=== PATIENT | male | born 1955 | race Caucasian/White ===

== ENCOUNTER 2017-09-13 16:39 | Emergency (ER) | payer MEDICAID ==
[~2017-09-13] VITALS: Ht 172.7 cm; Wt 72.6 kg
[2017-09-13 16:42] VITALS: BP 135/86
[2017-09-13] MEDS ORDERED: KETOROLAC TROMETHAMINE INJ 60 MG/2 ML VIAL IM ONE (17:00)
[2017-09-13] MEDS ORDERED: KETOROLAC TROMETHAMINE INJ 30 MG/ML VIAL ONE (17:04)
== END 2017-09-13 17:31 | disposition home or self-care (01) ==
LOC: ER 16:40
DX: M54.41 Lumbago with sciatica, right side (principal); E11.9 Type 2 diabetes mellitus without complications; F17.200 Nicotine dependence, unspecified, uncomplicated; I10 Essential (primary) hypertension; Z88.8 Allergy status to other drugs, medicaments and biological substances
CPT/HCPCS: 96372; 99283; 99406; A4606; J1885; Z7610

== ENCOUNTER 2017-09-17 11:15 | Emergency (ER) | payer MEDICAID, OTHER ==
[~2017-09-17] VITALS: Ht 177.8 cm; Wt 81.6 kg
[2017-09-17 11:43] VITALS: BP 173/109
[2017-09-17] MEDS ORDERED: KETOROLAC TROMETHAMINE INJ 30 MG/ML VIAL ONE (12:22)
[2017-09-17] MEDS ORDERED: KETOROLAC TROMETHAMINE INJ 60 MG/2 ML VIAL IM ONE (12:30)
== END 2017-09-17 12:31 | disposition home or self-care (01) ==
LOC: ER 11:16
DX: M54.41 Lumbago with sciatica, right side (principal); E11.9 Type 2 diabetes mellitus without complications; I10 Essential (primary) hypertension; F17.200 Nicotine dependence, unspecified, uncomplicated; Z88.6 Allergy status to analgesic agent
CPT/HCPCS: A4606; J1885; Z7610

== ENCOUNTER 2017-09-22 15:49 | Emergency (ER) | payer MEDICAID, OTHER ==
[~2017-09-22] VITALS: Ht 172.7 cm; Wt 73.5 kg
[2017-09-22 15:49] VITALS: BP 161/107
[2017-09-22] MEDS ORDERED: KETOROLAC TROMETHAMINE INJ 60 MG/2 ML VIAL IM ONE (16:30)
[2017-09-22] MEDS ORDERED: KETOROLAC TROMETHAMINE INJ 30 MG/ML VIAL ONE (16:35)
== END 2017-09-22 16:43 | disposition home or self-care (01) ==
LOC: ER 15:51
DX: M54.41 Lumbago with sciatica, right side (principal); Z76.0 Encounter for issue of repeat prescription; E11.9 Type 2 diabetes mellitus without complications; I10 Essential (primary) hypertension; Z88.6 Allergy status to analgesic agent
CPT/HCPCS: A4606; J1885; Z7610

== ENCOUNTER 2017-10-10 06:43 | Emergency (ER) | payer MEDICAID, OTHER ==
[~2017-10-10] VITALS: Ht 172.7 cm; Wt 72.6 kg
[2017-10-10] MEDS ORDERED: ONDANSETRON HCL/PF 4 MG/2 ML VIAL ONE (07:11)
[2017-10-10] MEDS ORDERED: KETOROLAC TROMETHAMINE INJ 30 MG/ML VIAL ONE (07:11)
[2017-10-10 07:17] LABS: BASOPHILS % (AUTO) 0.5 % (0.0-2.0); EOSINOPHILS % (AUTO) 3.1 % (0.0-6.0); HEMATOCRIT 46 % (39-51); HEMOGLOBIN 16.1 g/dL (13.5-17.5); LYMPHOCYTES # (AUTO) 2.7 /CMM (0.8-4.8); LYMPHOCYTES % (AUTO) 36.9 % (20.0-44.0); MEAN CORPUSCULAR HGB CONC 35 g/dl (31.0-36.0); MEAN CORPUSCULAR VOLUME 89 fL (80-96); MONOCYTES # (AUTO) 0.7 /CMM (0.1-1.30); MONOCYTES % (AUTO) 9.4 % (2.0-12.0); NEUTROPHILS # (AUTO) 3.7 /CMM (1.8-8.9); NEUTROPHILS % (AUTO) 50.1 % (43.0-81.0); PLATELET COUNT (AUTO) 177 /CMM (150-450); RDW COEFFICIENT OF VARIATION 14.1 (11.5-15.0); RED BLOOD CELL COUNT(AUTO) 5.18 MIL/uL (4.5-6.0); WHITE BLOOD COUNT (AUTO) 7.4 K/uL (4.3-11.0)
--- NOTE | 2017-10-10 07:17 | NUR ---
meds given as ordered.
--- NOTE | 2017-10-10 07:17 | NUR ---
bilat flank pain x 2 days. nad noted. pt aao x4, amb with steady gait. rr even and unlabored. pending md jean.
[2017-10-10 07:26] LABS: CALCIUM, SERUM 8.9 mg/dL (8.5-10.1); POTASSIUM 4.3 mmol/L (3.5-5.1)
[2017-10-10] MEDS ORDERED: IV NS 0.9% 1,000 ML BAG IV ONE (07:30)
[2017-10-10] MEDS ORDERED: ONDANSETRON HCL/PF 4 MG/2 ML VIAL IVP ONE (07:30)
[2017-10-10] MEDS ORDERED: KETOROLAC TROMETHAMINE INJ 30 MG/ML VIAL IV ONE (07:30)
[2017-10-10 07:32] LABS: ALBUMIN 3.6 g/dL (3.4-5.0); BILIRUBIN,DIRECT 0.3 mg/dL (0.0-0.2); BILIRUBIN,TOTAL 0.9 mg/dL (0.2-1.0); TOTAL PROTEIN, SERUM 7.1 g/dL (6.4-8.2)
[2017-10-10] MEDS ORDERED: HYDROCODONE/APAP 5/325MG 1 EACH TABLET ONE (07:52)
[2017-10-10] MEDS ORDERED: HYDROCODONE/APAP 5/325MG 1 EACH TABLET PO ONE (08:00)
--- NOTE | 2017-10-10 08:10 | NUR ---
pt back from ct
[2017-10-10 08:14] LABS: APPEARANCE,URINE CLEAR (CLEAR); BILIRUBIN,URINE NEGATIVE (NEGATIVE); BLOOD, URINE NEGATIVE Ery/uL (NEGATIVE); COLOR,URINE YELLOW (YELLOW); KETONES,URINE NEGATIVE (NEGATIVE); LEUKOCYTE ESTERASE ,URINE NEGATIVE (NEGATIVE); NITRITE, URINE NEGATIVE (NEGATIVE); PH,URINE 7.5 (5.0-8.0); PROTEIN,URINE NEGATIVE (NEGATIVE); UGLUCOSE 1+ mg/dL (NEGATIVE); UROBILINOGEN,URINE 0.2 EU/dL (0.2)
[2017-10-10 08:16] LABS: BACTERIA,URINE None seen /HPF (None Seen); RBC,URINE 0-2 /HPF (0-2); SQUAMOUS EPITHELIAL CELL,UR 0-2 /HPF (None Seen); WBC,URINE 0-2 /HPF (0-3)
--- NOTE | 2017-10-10 08:30 | NUR ---
IV removed. Catheter intact and site benign. Pressure and 4x4 applied to site. No bleeding noted.
[2017-10-10 08:40] VITALS: BP 142/89
== END 2017-10-10 08:41 | disposition home or self-care (01) ==
LOC: ER 06:43
DX: N20.0 Calculus of kidney (principal); I10 Essential (primary) hypertension; E11.9 Type 2 diabetes mellitus without complications
CPT/HCPCS: 36415; 74176; 80048; 80076; 81001; 83690; 85025; 96361; 96374; 96375; 99285; A4606; J1885; J2405; J7030; Z7610; 81000-TC

== ENCOUNTER 2017-10-25 18:16 | Emergency (ER) | payer MEDICAID, OTHER ==
[2017-10-25] MEDS ORDERED: IBUPROFEN 600 MG TABLET PO ONE ×2 (19:30→20:24)
[2017-10-25] MEDS ORDERED: HYDROCODONE/APAP 10/325MG 1 EA TABLET PO ONE (19:30)
[2017-10-25] MEDS ORDERED: HYDROCODONE/APAP 10/325MG 1 EA TABLET ONE (20:24)
[2017-10-25] MEDS ORDERED: IV NS 0.9% 1,000 ML BAG IV ONE (20:30)
== END 2017-10-25 21:29 | disposition home or self-care (01) ==
DX: M54.41 Lumbago with sciatica, right side (principal); E11.65 Type 2 diabetes mellitus with hyperglycemia; I10 Essential (primary) hypertension; Z60.2 Problems related to living alone

== ENCOUNTER 2017-11-08 23:08 | Emergency (ER) | payer OTHER ==
[~2017-11-08] VITALS: Ht 172.7 cm; Wt 71.7 kg
[2017-11-08 23:12] VITALS: BP 137/106
--- NOTE | 2017-11-08 23:28 | NUR ---
pt left without discharge paperwork. made aware.
== END 2017-11-08 23:32 | disposition home or self-care (01) ==
LOC: ER 23:11
DX: G89.29 Other chronic pain (principal); M54.9 Dorsalgia, unspecified; M54.30 Sciatica, unspecified side; E11.9 Type 2 diabetes mellitus without complications; I10 Essential (primary) hypertension
CPT/HCPCS: A4606; Z7502; Z7610

== ENCOUNTER 2018-06-18 13:36 | Emergency (ER) | payer MEDICAID, OTHER ==
[~2018-06-18] VITALS: Ht 167.6 cm; Wt 79.4 kg
[2018-06-18 14:21] VITALS: BP 115/75
[2018-06-18] MEDS ORDERED: DEXAMETHASONE SOD PHOSPHATE 4 MG/ML VIAL IM ONE (15:30)
[2018-06-18] MEDS ORDERED: KETOROLAC TROMETHAMINE INJ 60 MG/2 ML VIAL IM ONE (15:30)
[2018-06-18] MEDS ORDERED: HYDROCODONE/APAP 5/325MG 1 EACH TABLET PO ONE (15:30)
[2018-06-18] MEDS ORDERED: DEXAMETHASONE SOD PHOSPHATE 10 MG/ML VIAL ONE (15:30)
[2018-06-18] MEDS ORDERED: KETOROLAC TROMETHAMINE INJ 30 MG/ML VIAL ONE (15:31)
[2018-06-18] MEDS ORDERED: HYDROCODONE/APAP 5/325MG 1 EACH TABLET ONE (15:31)
[2018-06-18 15:39] LABS: APPEARANCE,URINE Clear (CLEAR); BILIRUBIN,URINE Negative (NEGATIVE); BLOOD, URINE Negative Ery/uL (NEGATIVE); COLOR,URINE Yellow (YELLOW); KETONES,URINE 15 (NEGATIVE); LEUKOCYTE ESTERASE ,URINE Negative (NEGATIVE); NITRITE, URINE Negative (NEGATIVE); PROTEIN,URINE 30 mg/dl (NEGATIVE); UGLUCOSE 500 MG/DL mg/dL (NEGATIVE); UROBILINOGEN,URINE 0.2 EU/dL (0.2)
[2018-06-18] MEDS ORDERED: IV NS 0.9% 1,000 ML BAG IV ONE (16:00)
[2018-06-18 16:09] LABS: BASOPHILS % (AUTO) 0.5 % (0.0-2.0); EOSINOPHILS % (AUTO) 1.8 % (0.0-6.0); HEMATOCRIT 47 % (39-51); HEMOGLOBIN 16.8 g/dL (13.5-17.5); LYMPHOCYTES # (AUTO) 1.8 /CMM (0.8-4.8); LYMPHOCYTES % (AUTO) 22.7 % (20.0-44.0); MEAN CORPUSCULAR HGB CONC 35 g/dl (31.0-36.0); MEAN CORPUSCULAR VOLUME 90 fL (80-96); MONOCYTES # (AUTO) 0.8 /CMM (0.1-1.30); MONOCYTES % (AUTO) 10.3 % (2.0-12.0); NEUTROPHILS # (AUTO) 5.2 /CMM (1.8-8.9); NEUTROPHILS % (AUTO) 64.7 % (43.0-81.0); PLATELET COUNT (AUTO) 182 /CMM (150-450); RED BLOOD CELL COUNT(AUTO) 5.25 MIL/uL (4.5-6.0)
[2018-06-18 16:18] LABS: CALCIUM, SERUM 9.1 mg/dL (8.5-10.1); POTASSIUM 4.2 mmol/L (3.5-5.1)
[2018-06-18 16:24] LABS: ALBUMIN 3.8 g/dL (3.4-5.0); BILIRUBIN,DIRECT 0.1 mg/dL (0.0-0.2); BILIRUBIN,TOTAL 0.6 mg/dL (0.2-1.0); TOTAL PROTEIN, SERUM 7.5 g/dL (6.4-8.2)
[2018-06-18 16:28] LABS: BACTERIA,URINE None seen /HPF (None Seen); RBC,URINE 0-2 /HPF (0-2); SQUAMOUS EPITHELIAL CELL,UR Few /HPF (None Seen); WBC,URINE 0-2 /HPF (0-3)
--- NOTE | 2018-06-18 17:10 | NUR ---
For discharge- [facility] verbalized understanding. Home ambulatory in stable condition
== END 2018-06-18 17:10 | disposition home or self-care (01) ==
LOC: ER 13:43
DX: M54.41 Lumbago with sciatica, right side (principal); E11.65 Type 2 diabetes mellitus with hyperglycemia; R80.9 Proteinuria, unspecified; E86.0 Dehydration; I10 Essential (primary) hypertension; Z60.2 Problems related to living alone
CPT/HCPCS: 36415; 80048; 80076; 81001; 82962; 85025; 96361; 96372 ×2; 99283; A4606; J1100; J1885; J7030; Z7610; 81000-TC

== ENCOUNTER 2018-07-20 22:41 | Emergency (ER) | payer MEDICAID ==
[~2018-07-20] VITALS: Ht 175.3 cm; Wt 76.2 kg
[2018-07-20 23:10] VITALS: BP 156/98
[2018-07-21] MEDS ORDERED: GABAPENTIN 300 MG CAPSULE ONE (00:26)
[2018-07-21] MEDS ORDERED: KETOROLAC TROMETHAMINE INJ 30 MG/ML VIAL ONE (00:26)
[2018-07-21] MEDS ORDERED: GABAPENTIN 100 MG CAPSULE PO ONE (00:30)
[2018-07-21] MEDS ORDERED: KETOROLAC TROMETHAMINE INJ 60 MG/2 ML VIAL IM ONE (00:30)
[2018-07-21 00:52] LABS: CALCIUM, SERUM 8.7 mg/dL (8.5-10.1); POTASSIUM 3.7 mmol/L (3.5-5.1)
== END 2018-07-21 01:33 | disposition home or self-care (01) ==
LOC: ER 22:42
DX: E11.40 Type 2 diabetes mellitus with diabetic neuropathy, unspecified (principal); I10 Essential (primary) hypertension; M54.30 Sciatica, unspecified side; Z60.2 Problems related to living alone
CPT/HCPCS: 36415; 80048; 99283; A4606; Z7610; J1885

== ENCOUNTER 2018-11-12 18:49 | Emergency (ER) | payer MEDICAID, OTHER ==
[~2018-11-12] VITALS: Ht 175.3 cm; Wt 73.5 kg
[2018-11-12] MEDS ORDERED: ACETAMINOPHEN ES 500 MG TABLET PO ONE (19:30)
--- NOTE | 2018-11-12 19:40 | NUR ---
RADIOLOGY AT BEDSIDE FOR CXR
[2018-11-12] MEDS ORDERED: ACETAMINOPHEN ES 500 MG TABLET ONE (19:42)
--- NOTE | 2018-11-12 19:45 | NUR ---
presented w/ c/o RLE and R chest/ abd pain s/p fall. denied hitting hishead. vss. x. ray obtained and medicated as ordered. will cont to monitor,
--- NOTE | 2018-11-12 21:07 | NUR ---
dPatient discharged to home in stable condition. rx and Written and verbal after care instructions given. Patient verbalizes understanding of instruction.
[2018-11-12 21:10] VITALS: BP 148/85
== END 2018-11-12 21:05 | disposition home or self-care (01) ==
LOC: ER 18:50
DX: S20.211A Contusion of right front wall of thorax, initial encounter (principal); S80.11XA Contusion of right lower leg, initial encounter; E11.40 Type 2 diabetes mellitus with diabetic neuropathy, unspecified; I10 Essential (primary) hypertension; M54.30 Sciatica, unspecified side; Z60.2 Problems related to living alone; W01.0XXA Fall on same level from slipping, tripping and stumbling without subsequent striking against object, initial encounter; Y93.01 Activity, walking, marching and hiking; Y92.89 Other specified places as the place of occurrence of the external cause; Y99.8 Other external cause status
CPT/HCPCS: 71100-TC; 73552

== ENCOUNTER 2018-11-20 17:55 | Emergency (ER) | payer MEDICAID ==
[~2018-11-20] VITALS: Ht 172.7 cm; Wt 71.7 kg
--- NOTE | 2018-11-20 18:00 | NUR ---
AAOX3, came to ER c/o right rib cage pain, s/p fall 9 days ago. RR is even and unlabored with NAD noted. Skin is warm and dry. Awaiting MD for eval.
[2018-11-20] MEDS ORDERED: KETOROLAC TROMETHAMINE INJ 60 MG/2 ML VIAL IM ONE ×2 (19:00→19:13)
[2018-11-20] MEDS ORDERED: IBUPROFEN 600 MG TABLET PO ONE (19:18)
[2018-11-20] MEDS: IBUPROFEN 600 MG TABLET PO ONE (19:20)
--- NOTE | 2018-11-20 19:20 | NUR ---
REPORT RECEIVED FROM KALYAN GOODE FOR URIEL
--- NOTE | 2018-11-20 19:21 | NUR ---
Ethan naik in ED - 11/20/18 at 1922 by DELANEY REPORT GIVEN TO LESLY BIGGS FOR URIEL.
--- NOTE | 2018-11-20 19:22 | NUR ---
REPORT GIVEN TO LESLY BIGGS FOR URIEL.
--- NOTE | 2018-11-20 20:11 | NUR ---
PT BEING WHEELED BACK FROM RADIOLOGY
[2018-11-20 21:35] VITALS: BP 147/83
== END 2018-11-20 21:37 | disposition home or self-care (01) ==
LOC: ER 17:59
DX: S22.41XA Multiple fractures of ribs, right side, initial encounter for closed fracture (principal); I10 Essential (primary) hypertension; E11.40 Type 2 diabetes mellitus with diabetic neuropathy, unspecified; M54.30 Sciatica, unspecified side; Z60.2 Problems related to living alone; W01.0XXA Fall on same level from slipping, tripping and stumbling without subsequent striking against object, initial encounter; Y93.01 Activity, walking, marching and hiking; Y92.89 Other specified places as the place of occurrence of the external cause; Y99.8 Other external cause status
CPT/HCPCS: 71100-TC; 71250-TC; J1885

== ENCOUNTER 2018-12-27 19:41 | Emergency (ER) | payer MEDICAID ==
[~2018-12-27] VITALS: Ht 172.7 cm; Wt 71.7 kg
[2018-12-27 19:47] VITALS: BP 135/74
--- NOTE | 2018-12-27 20:13 | NUR ---
SEEN AND EXAMINED BY JEREMIAH NIETO
--- NOTE | 2018-12-27 20:19 | NUR ---
Patient discharged to home in stable condition. Written and verbal after care instructions given. Patient verbalizes understanding of instruction.
== END 2018-12-27 20:23 | disposition home or self-care (01) ==
LOC: ER 19:45
DX: S22.31XA Fracture of one rib, right side, initial encounter for closed fracture (principal); E11.40 Type 2 diabetes mellitus with diabetic neuropathy, unspecified; I10 Essential (primary) hypertension; M54.30 Sciatica, unspecified side; Z60.2 Problems related to living alone; W18.39XA Other fall on same level, initial encounter; Y93.89 Activity, other specified; Y92.89 Other specified places as the place of occurrence of the external cause; Y99.8 Other external cause status